=== PATIENT | male | born 1940 | race Caucasian/White ===

== ENCOUNTER 2016-05-30 10:47 | Inpatient (IN) | payer MEDICARE, MEDICAID ==
[~2016-05-30] VITALS: Ht 160 cm; Wt 52.9 kg
[2016-05-30] MEDS ORDERED: Flu Vaccine Quadrivalent 60 MCG/0.5 ML IM.VACC ONE (14:20)
[2016-05-30] MEDS ORDERED: PNEUMO VAC 25 MCG/0.5 ML VL IM.VACC ONE (14:20)
[2016-05-30 14:30] VITALS: Ht 160 cm; Wt 52.9 kg
[2016-05-30 14:31] VITALS: BP_SYST 155; RESP 16; TEMP 98
[2016-05-30] MEDS ORDERED: CEFAZOLIN 1,000 MG in DEXTROSE 5% 50 ML IV SCH (16:00)
[2016-05-30] MEDS ORDERED: SALINE FLUSH 10 ML FLUSH PRN (16:00)
[2016-05-30] MEDS ORDERED: PHARMACY TO DOSE VANCOMYCIN IV SCH (16:55)
[2016-05-30] MEDS ORDERED: VANCOMYCIN 1,250 MG in SODIUM CHLORIDE 0.9% 250 ML IV ONE (17:05)
[2016-05-30] MEDS: Furosemide 40 MG/4 ML VIAL IV SCH (17:43)
[2016-05-30 19:25] VITALS: BP_SYST 133; RESP 20; TEMP 98
[2016-05-30] MEDS: Atorvastatin 20 MG TAB PO SCH (19:41)
[2016-05-30] MEDS: METOPROLOL TART 25 MG TAB PO SCH (19:42)
[2016-05-30] MEDS: SALINE FLUSH 10 ML FLUSH SCH (19:42)
[2016-05-30 23:29] VITALS: BP_SYST 127; RESP 18; TEMP 98.1
[2016-05-31] VITALS (7 sets, daily range): BP systolic 99–122; RESP 16; TEMP 97.6–100.3
[2016-05-31] MEDS: SODIUM CHLORIDE 0.9% FLUSH BAG 500 ML IV SCH (06:00)
[2016-05-31] MEDS: VANCOMYCIN 1,000 MG in SODIUM CHLORIDE 0.9% 250 ML IV SCH ×2 (06:02→18:28)
[2016-05-31] MEDS ORDERED: ACETAMINOPHEN 325 MG TAB PO PRN (08:30)
[2016-05-31] MEDS: Furosemide 40 MG/4 ML VIAL IV SCH (08:52)
[2016-05-31] MEDS: ENOXAPARIN 40 MG/0.4 ML SYR SUBQ SCH (08:52)
[2016-05-31] MEDS: SALINE FLUSH 10 ML FLUSH SCH ×2 (08:53→21:05)
[2016-05-31] MEDS: METOPROLOL TART 25 MG TAB PO SCH (08:53)
[2016-05-31] MEDS: SERTRALINE 50 MG TAB PO SCH (08:53)
[2016-05-31] MEDS: DILTIAZEM CD 120 MG CAP PO SCH (08:53)
[2016-05-31] MEDS: ASPIRIN EC 325 MG TAB PO SCH (08:53)
[2016-05-31] MEDS: SPIRONOLACTONE 25 MG TAB PO SCH (08:53)
[2016-05-31] MEDS: FAMOTIDINE 20 MG TAB PO SCH (08:53)
[2016-05-31] MEDS ORDERED: PHARMACY TO DOSE CEFEPIME IV SCH (10:20)
[2016-05-31] MEDS: DIGOXIN 0.125 MG TAB PO SCH (12:20)
[2016-05-31] MEDS: CEFEPIME 2000 MG/100 ML D5W 100 ML IV SCH (12:20)
[2016-05-31] MEDS: METOPROLOL TART 50 MG TAB PO SCH ×2 (21:00→21:04)
[2016-05-31] MEDS: Atorvastatin 20 MG TAB PO SCH (21:04)
[2016-06-01 03:49] VITALS: BP_SYST 119; RESP 16; TEMP 98
[2016-06-01] MEDS: VANCOMYCIN 1,000 MG in SODIUM CHLORIDE 0.9% 250 ML IV SCH (06:08)
[2016-06-01] MEDS: SODIUM CHLORIDE 0.9% FLUSH BAG 500 ML IV SCH (06:08)
[2016-06-01 07:24] VITALS: BP_SYST 116; RESP 18; TEMP 98.4
[2016-06-01] MEDS: ENOXAPARIN 40 MG/0.4 ML SYR SUBQ SCH (09:38)
[2016-06-01] MEDS: SALINE FLUSH 10 ML FLUSH SCH ×2 (09:39→20:54)
[2016-06-01] MEDS: SPIRONOLACTONE 25 MG TAB PO SCH (09:39)
[2016-06-01] MEDS: CEFEPIME 2000 MG/100 ML D5W 100 ML IV SCH (09:39)
[2016-06-01] MEDS: ASPIRIN EC 325 MG TAB PO SCH (09:39)
[2016-06-01] MEDS: FAMOTIDINE 20 MG TAB PO SCH (09:39)
[2016-06-01] MEDS: METOPROLOL TART 50 MG TAB PO SCH ×2 (09:39→20:54)
[2016-06-01] MEDS: DILTIAZEM CD 120 MG CAP PO SCH (09:39)
[2016-06-01] MEDS: SERTRALINE 50 MG TAB PO SCH (09:40)
[2016-06-01] MEDS: Furosemide 40 MG TAB PO SCH (09:40)
[2016-06-01] MEDS: TRIMETH/SULFAMETH 160/800 TAB PO SCH ×2 (11:09→20:54)
[2016-06-01 13:00] VITALS: BP_SYST 120; RESP 16; TEMP 98.2
[2016-06-01] MEDS: DIGOXIN 0.125 MG TAB PO SCH (13:06)
[2016-06-01] MEDS ORDERED: MISSING DOSE XX ONE ×2 (13:10→21:00)
[2016-06-01 16:00] VITALS: BP_SYST 126; RESP 18; TEMP 98.3
[2016-06-01 20:19] VITALS: BP_SYST 125; RESP 18; TEMP 98.2
[2016-06-01] MEDS: Atorvastatin 20 MG TAB PO SCH (20:54)
[2016-06-02] MEDS: SODIUM CHLORIDE 0.9% FLUSH BAG 500 ML IV SCH (00:04)
[2016-06-02 00:13] VITALS: BP_SYST 110; RESP 18; TEMP 98.4
[2016-06-02 03:34] VITALS: BP_SYST 108; RESP 18; TEMP 98
[2016-06-02 07:23] VITALS: BP_SYST 107; RESP 18; TEMP 98.3
[2016-06-02] MEDS: ASPIRIN EC 325 MG TAB PO SCH (09:44)
[2016-06-02] MEDS: METOPROLOL TART 50 MG TAB PO SCH ×2 (09:44→20:44)
[2016-06-02] MEDS: TRIMETH/SULFAMETH 160/800 TAB PO SCH ×2 (09:44→20:44)
[2016-06-02] MEDS: SALINE FLUSH 10 ML FLUSH SCH ×2 (09:44→21:11)
[2016-06-02] MEDS: FAMOTIDINE 20 MG TAB PO SCH (09:44)
[2016-06-02] MEDS: SPIRONOLACTONE 25 MG TAB PO SCH (09:44)
[2016-06-02] MEDS: Furosemide 40 MG TAB PO SCH (09:45)
[2016-06-02] MEDS: DILTIAZEM CD 120 MG CAP PO SCH (09:45)
[2016-06-02] MEDS: SERTRALINE 50 MG TAB PO SCH (09:45)
[2016-06-02] MEDS: ENOXAPARIN 40 MG/0.4 ML SYR SUBQ SCH (09:46)
[2016-06-02 11:52] VITALS: BP_SYST 109; RESP 16; TEMP 98.6
[2016-06-02] MEDS: DIGOXIN 0.125 MG TAB PO SCH (12:00)
[2016-06-02 15:58] VITALS: BP_SYST 100; RESP 16; TEMP 98.2
[2016-06-02 19:48] VITALS: BP_SYST 113; RESP 16; TEMP 98.4
[2016-06-02] MEDS: Atorvastatin 20 MG TAB PO SCH (20:44)
[2016-06-03 00:09] VITALS: BP_SYST 112; RESP 18; TEMP 98.4
[2016-06-03] MEDS: SODIUM CHLORIDE 0.9% FLUSH BAG 500 ML IV SCH (03:34)
[2016-06-03 04:37] VITALS: BP_SYST 111; RESP 16; TEMP 98.1
[2016-06-03 07:19] VITALS: BP_SYST 108; RESP 20; TEMP 97.9
[2016-06-03] MEDS: SERTRALINE 50 MG TAB PO SCH (09:30)
[2016-06-03] MEDS: SALINE FLUSH 10 ML FLUSH SCH ×2 (09:30→22:36)
[2016-06-03] MEDS: FAMOTIDINE 20 MG TAB PO SCH (09:30)
[2016-06-03] MEDS: DILTIAZEM CD 120 MG CAP PO SCH (09:31)
[2016-06-03] MEDS: METOPROLOL TART 50 MG TAB PO SCH ×2 (09:31→22:37)
[2016-06-03] MEDS: ASPIRIN EC 325 MG TAB PO SCH (09:31)
[2016-06-03] MEDS: Furosemide 40 MG TAB PO SCH (09:31)
[2016-06-03] MEDS: TRIMETH/SULFAMETH 160/800 TAB PO SCH ×2 (09:32→22:37)
[2016-06-03] MEDS: SPIRONOLACTONE 25 MG TAB PO SCH (09:33)
[2016-06-03] MEDS: ENOXAPARIN 40 MG/0.4 ML SYR SUBQ SCH (09:34)
[2016-06-03] MEDS: TRIAMCINOLONE 0.1% TOPICAL SCH (10:19)
[2016-06-03 11:46] VITALS: BP_SYST 109; RESP 20; TEMP 98.1
[2016-06-03] MEDS: DIGOXIN 0.125 MG TAB PO SCH (12:00)
[2016-06-03] MEDS: BACITRACIN OINT TOPICAL SCH (13:05)
[2016-06-03 15:28] VITALS: BP_SYST 104; RESP 20; TEMP 97.9
[2016-06-03 20:09] VITALS: BP_SYST 104; RESP 20; TEMP 98.1
[2016-06-03] MEDS: Atorvastatin 20 MG TAB PO SCH (22:37)
[2016-06-04] VITALS (11 sets, daily range): BP systolic 97–114; RESP 16–20; TEMP 98–98.4
[2016-06-04] MEDS: SODIUM CHLORIDE 0.9% FLUSH BAG 500 ML IV SCH (05:50)
[2016-06-04] MEDS: ASPIRIN EC 325 MG TAB PO SCH (09:22)
[2016-06-04] MEDS: FAMOTIDINE 20 MG TAB PO SCH (09:22)
[2016-06-04] MEDS: DILTIAZEM CD 120 MG CAP PO SCH (09:22)
[2016-06-04] MEDS: SERTRALINE 50 MG TAB PO SCH (09:22)
[2016-06-04] MEDS: SALINE FLUSH 10 ML FLUSH SCH (09:22)
[2016-06-04] MEDS: METOPROLOL TART 50 MG TAB PO SCH (09:23)
[2016-06-04] MEDS: Furosemide 40 MG TAB PO SCH (09:23)
[2016-06-04] MEDS: TRIMETH/SULFAMETH 160/800 TAB PO SCH (09:23)
[2016-06-04] MEDS: SPIRONOLACTONE 25 MG TAB PO SCH (09:23)
[2016-06-04] MEDS: ENOXAPARIN 40 MG/0.4 ML SYR SUBQ SCH (09:24)
[2016-06-04] MEDS: BACITRACIN OINT TOPICAL SCH (10:21)
[2016-06-04] MEDS: TRIAMCINOLONE 0.1% TOPICAL SCH (10:21)
[2016-06-04] MEDS: DIGOXIN 0.125 MG TAB PO SCH (12:00)
== END 2016-06-04 15:27 | disposition home health service (06) | DRG 602 ==
LOC: ENRESERVDT → ENRESERVTM → CANRESERV → 5THE 13:26 → ENPENDDIS 13:26 → 4NT 06-01 12:12
PROVIDERS: ADMIT Family Medicine; ATTEND Family Medicine
DX: L03.115 Cellulitis of right lower limb (principal); I50.33 Acute on chronic diastolic (congestive) heart failure; I35.0 Nonrheumatic aortic (valve) stenosis; B95.61 Methicillin susceptible Staphylococcus aureus infection as the cause of diseases classified elsewhere; I87.2 Venous insufficiency (chronic) (peripheral); L03.116 Cellulitis of left lower limb; B96.89 Other specified bacterial agents as the cause of diseases classified elsewhere; I11.0 Hypertensive heart disease with heart failure; Z95.2 Presence of prosthetic heart valve; M19.90 Unspecified osteoarthritis, unspecified site; F32.9 Major depressive disorder, single episode, unspecified; Z85.038 Personal history of other malignant neoplasm of large intestine; Z85.828 Personal history of other malignant neoplasm of skin; Z79.82 Long term (current) use of aspirin; R01.1 Cardiac murmur, unspecified
CPT/HCPCS: 71020; 80048; 80053; 80202; 83880; 85025; 87040; 87071; 87077; 87186; 93005; 93306; 99223; 99232; 99233; 99239